=== PATIENT | female | born 1980 | race American Indian/Alaskan Native ===

== ENCOUNTER 2018-12-31 11:11 | Emergency (ER) | payer OTHER ==
--- NOTE | 2018-12-31 11:21 | Emergency Department Report ---
Blank Doc - Documentation Documentation: 38 y o female presents to Ed cc of right wrist pain s/p injury 2 weeks ago stat es door was slammed on her wrist and has had improper care by workers comp pain localized to wrist XR [facility] eval
[2018-12-31 11:22] VITALS: BP 121/83
--- NOTE | 2018-12-31 12:57 | Emergency Department Report ---
Upper Extremity - HPI Chief Complaint: Extremity Injury, Upper Stated Complaint: RT ARM INJURY Time Seen by Provider: 12/31/18 11:19 Upper Extremity: Left Forearm Occurred When: >5 Days Mechanism: Crush Severity: mild Symptoms: Yes Pain with Movement, No Deformity, No Limited Range of Movement, No Numbness, No Weakness, No Swelling, No Bruising/Ecchymosis, No Laceration or Abrasion Other History: Ms. Garzon is a 38-year-old female who presents half weeks after injury to her right forearm. 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 Prescribed ice pack. She has intermittent pain. She also has tingling of the proximal forearm. She just wants to make sure everything was ok with a second opinion. ED Review of Systems ROS: Stated complaint: RT ARM INJURY Other details as noted in HPI Constitutional: denies: fever, malaise Musculoskeletal: denies: joint swelling, arthralgia Neurological: denies: numbness, paresthesias ED Past Medical Hx - Past Medical History Previous Medical History?: Yes Hx Headaches / Migraines: Yes - Surgical History Past Surgical History?: Yes Additional Surgical History: tubal clamps - Social History Smoking Status: Current Every Day Smoker Substance Use Type: None - Medications Home Medications: Home Medications Medication Instructions Recorded Confirmed Last Taken Type Docusate Sodium [Colace] 100 mg PO BID #60 capsule 09/28/15 Unknown Rx HYDROcodone/APAP 5-325 [[place] 1 each PO Q6HR PRN #12 tablet 09/28/15 Unknown Rx 5/325] Promethazine [Phenergan TAB] 25 mg PO Q6HR PRN #16 tab 09/28/15 Unknown Rx Sulfamethoxazole/Trimethoprim 1 each PO BID #14 tablet 09/28/15 Unknown Rx [Bactrim DS TAB] Upper Extremity Exam - Exam General: Vital signs noted. No distress. Alert and acting appropriately. Head and Torso: No HEENT Abnormality Shoulder Exam: No Shoulder Tenderness Arm Exam: No Arm/Humerus Tenderness, No Arm Deformity Elbow: Yes Normal Range of Motion in Elbow, No Elbow Tenderness, No Elbow Deformity Forearm: No Forearm Tenderness, No Forearm Deformity, No Pain with Pronation, No Pain with Supination Wrist: Yes Wrist Deformity, No Wrist Tenderness, No Normal ROM in Wrist, No Snuffbox Tenderness, No Pain with Axial Thumb Compression Hand: No Hand Tenderness, No Hand Deformity, No Digit Tenderness ED Course Vital Signs 12/31/18 11:19 Temperature 98.2 F Pulse Rate 82 Respiratory 18 Rate Blood Pressure 121/83 O2 Sat by Pulse 99 Oximetry ED Medical Decision Making - Radiology Data Radiology results: report reviewed Right forearm and elbow radiographs 3 views interpreted by me no fracture no dislocation no acute process normal exam - Medical Decision Making Forearm contusion from a crush injury at work, given reassurance. Critical care attestation.: If time is entered above; I have spent that time in minutes in the direct care of this critically ill patient, excluding procedure time. ED Disposition Clinical Impression: Contusion of right forearm Disposition: - TO HOME OR SELFCARE Is pt being admited?: No Does the pt Need Aspirin: No Condition: Stable Instructions: Contusion in Adults (ED)
--- NOTE | 2018-12-31 12:57 | XRay Report ---
PROCEDURE: XR FOREARM 1V RT TECHNIQUE: AP radiograph of the right forearm was performed. HISTORY: pain COMPARISONS: None. FINDINGS: No fracture. No dislocation. Normal mineralization. No soft tissue swelling. IMPRESSION: No acute abnormality of the right forearm on this single frontal view. This document is electronically signed by Fabby Luis., December 31 2018 01:54:49 PM ET
--- NOTE | 2018-12-31 13:14 | XRay Report ---
PROCEDURE: XR ELBOW 3+V RT TECHNIQUE: AP, oblique and lateral radiographs of the right elbow were performed. HISTORY: pain COMPARISONS: None. FINDINGS: No fracture. No dislocation. Normal mineralization. No soft tissue swelling. No joint effusion. IMPRESSION: Normal right elbow. This document is electronically signed by Fabby Luis., December 31 2018 02:11:59 PM ET
== END 2018-12-31 13:23 | disposition home or self-care (01) ==
LOC: ED 11:11
DX: S50.11XA Contusion of right forearm, initial encounter (principal); F17.200 Nicotine dependence, unspecified, uncomplicated; G43.909 Migraine, unspecified, not intractable, without status migrainosus; Z98.51 Tubal ligation status; X58.XXXA Exposure to other specified factors, initial encounter; Y93.89 Activity, other specified; Y92.89 Other specified places as the place of occurrence of the external cause; Y99.8 Other external cause status

== ENCOUNTER 2019-07-01 03:54 | Emergency (ER) | payer OTHER ==
[2019-07-01] MEDS ORDERED: SODIUM CHLORIDE 0.9% 1000 ML 1,000 ML IV ONE (04:09)
[2019-07-01] MEDS ORDERED: ONDANSETRON 4 MG/2 ML INJ IV ONE (04:09)
[2019-07-01] MEDS ORDERED: MORPHINE 4 MG/1 ML INJ IV ONE (04:09)
[2019-07-01] MEDS ORDERED: KETOROLAC 30 MG/1 ML INJ IV ONE (04:09)
--- NOTE | 2019-07-01 04:13 | Emergency Department Report ---
ED Abdominal Pain HPI - General Chief Complaint: Abdominal Pain Stated Complaint: ABD PAIN Time Seen by Provider: 07/01/19 04:01 Source: patient, EMS Mode of arrival: Stretcher Limitations: No Limitations - History of Present Illness Initial Comments: Mrs. Garzon is a 38 yo female with hx of uterine fibroids who presents with severe epigastric central abdominal pain which began a few hours ago. Sharp severe 10/10 pain, "worse pain in my life." She took ibuprofen for heartburn earlier this evening. +nausea/vomiting. Normal BM yesterday morning. She ate typical thanksgiving food this eveing. Arrived via EMS drank 2 wine coolers today Hx of tubal ligation. Complaint: abdominal pain -: Gradual, hour(s) (several hours) Location: periumbilical, epigastric Severity scale (0 -10): 10 Quality: sharp Consistency: constant Improves With: nothing Worsens With: nothing Context: other (no hx of such pain) Associated Symptoms: nausea, vomiting - Related Data Previous Rx's Medication Instructions Recorded Last Taken Type Docusate Sodium [Colace] 100 mg PO BID #60 capsule 09/28/15 Unknown Rx HYDROcodone/APAP 5-325 [[place] 1 each PO Q6HR PRN #12 tablet 09/28/15 Unknown Rx 5/325] Promethazine [Phenergan TAB] 25 mg PO Q6HR PRN #16 tab 09/28/15 Unknown Rx Sulfamethoxazole/Trimethoprim 1 each PO BID #14 tablet 09/28/15 Unknown Rx [Bactrim DS TAB] Famotidine [Pepcid] 20 mg PO BID 30 Days #60 tablet 07/01/19 Unknown Rx HYDROcodone/APAP 5-325 [[place] 1 each PO Q6HR PRN #10 tablet 07/01/19 Unknown Rx 5/325] Promethazine [Phenergan] 25 mg PO Q6HR PRN #10 tab 07/01/19 Unknown Rx Allergies Allergy/AdvReac Type Severity Reaction Status Date / Time No Known Allergies Allergy Verified 12/31/18 11:13 ED Review of Systems ROS: Stated complaint: ABD PAIN Other details as noted in HPI Comment: All other systems reviewed and negative Constitutional: denies: fever, malaise Cardiovascular: denies: chest pain Gastrointestinal: abdominal pain, nausea, vomiting. denies: diarrhea, constipation Musculoskeletal: denies: back pain ED Past Medical Hx - Past Medical History Previous Medical History?: Yes Hx Headaches / Migraines: Yes Additional medical history: uterine fibroids - Surgical History Past Surgical History?: Yes Additional Surgical History: tubal clamps - Social History Smoking Status: Current Every Day Smoker Substance Use Type: Alcohol - Medications Home Medications: Home Medications Medication Instructions Recorded Confirmed Last Taken Type Docusate Sodium [Colace] 100 mg PO BID #60 capsule 09/28/15 Unknown Rx HYDROcodone/APAP 5-325 [[place] 1 each PO Q6HR PRN #12 tablet 09/28/15 Unknown Rx 5/325] Promethazine [Phenergan TAB] 25 mg PO Q6HR PRN #16 tab 09/28/15 Unknown Rx Sulfamethoxazole/Trimethoprim 1 each PO BID #14 tablet 09/28/15 Unknown Rx [Bactrim DS TAB] Famotidine [Pepcid] 20 mg PO BID 30 Days #60 tablet 07/01/19 Unknown Rx HYDROcodone/APAP 5-325 [[place] 1 each PO Q6HR PRN #10 tablet 07/01/19 Unknown Rx 5/325] Promethazine [Phenergan] 25 mg PO Q6HR PRN #10 tab 07/01/19 Unknown Rx ED Physical Exam - General Limitations: No Limitations General appearance: alert, other (tearful appears in pain) - Head Head exam: Present: atraumatic, normocephalic - Eye Eye exam: Present: normal appearance - ENT ENT exam: Present: mucous membranes moist - Neck Neck exam: Present: normal inspection, full ROM - Respiratory Respiratory exam: Present: normal lung sounds bilaterally. Absent: respiratory distress, wheezes, rales, rhonchi - Cardiovascular Cardiovascular Exam: Present: regular rate, normal rhythm, normal heart sounds. Absent: systolic murmur, diastolic murmur, rubs, gallop - GI/Abdominal GI/Abdominal exam: Present: soft, normal bowel sounds. Absent: distended, tenderness, guarding, rebound - Extremities Exam Extremities exam: Present: normal inspection - Back Exam Back exam: Present: normal inspection - Neurological Exam Neurological exam: Present: alert, oriented X3 - Psychiatric Psychiatric exam: Present: normal affect, normal mood - Skin Skin exam: Present: warm, dry, intact, normal color. Absent: rash ED Course Vital Signs 07/01/19 07/01/1919 04:04 04:10 05:00 Temperature 98.8 F 98.8 F Pulse Rate 79 79 53 L Respiratory 16 16 19 Rate Blood Pressure 144/105 118/73 Blood Pressure 144/105 [Left] O2 Sat by Pulse 99 99 100 Oximetry ED Medical Decision Making - Lab Data Result diagrams: 07/01/19 04:22 07/01/19 04:22 - Radiology Data Radiology results: report reviewed CT a/p: NAP - Medical Decision Making Mrs. Garzon presents with abdominal chest pain. Suggestive of GERD/gastritis/PUD rx: famotidine CBC chemistry lipase CT A/P all within normal limits I provided instructions. Recommended cessation of tobacco use. Critical care attestation.: If time is entered above; I have spent that time in minutes in the direct care of this critically ill patient, excluding procedure time. ED Disposition Clinical Impression: Abdominal pain Disposition: DC-01 TO HOME OR SELFCARE Is pt being admited?: No Does the pt Need Aspirin: No Condition: Stable Instructions: Abdominal Pain (ED) Prescriptions: HYDROcodone/APAP 5-325 [[place] 5/325] 1 each PO Q6HR PRN #10 tablet PRN Reason: Pain Famotidine [Pepcid] 20 mg PO BID 30 Days #60 tablet Promethazine [Phenergan] 25 mg PO Q6HR PRN #10 tab PRN Reason: Nausea Referrals: FERNANDO FREED MD [Staff Physician] - 3-5 Days [facility] [Outside] - 3-5 Days Forms: Work/School Release Form(ED)
[2019-07-01 04:35] LABS: Hematocrit 38.7 % (30.3-42.9); Mean Corpuscular HGB Conc 34 % (30-34); Mean Corpuscular Volume 96 fl (79-97); Platelet Count 212 K/mm3 (140-440); Red Blood Count 4.03 M/mm3 (3.65-5.03); Red Cell Distribution Width 13.5 % (13.2-15.2)
[2019-07-01 04:52] LABS: Alanine Aminotransferase 9 units/L (7-56); Albumin 4.3 g/dL (3.9-5); BUN/Creatinine Ratio 9; Blood Urea Nitrogen 6 mg/dL (7-17); Calcium 8.8 mg/dL (8.4-10.2); Hemolysis Index 3
[2019-07-01 04:59] LABS: Bilirubin,Direct < 0.2 mg/dL (0-0.2)
[2019-07-01 05:35] LABS: Basophils % (Manual) 0 % (0.0-1.8); Total Cells Counted 100
--- NOTE | 2019-07-01 05:35 | Cat Scan Report ---
CT ABDOMEN AND PELVIS WITHOUT CONTRAST INDICATION / CLINICAL INFORMATION: severe central abd pain. TECHNIQUE: Axial CT images were obtained through the abdomen and pelvis without IV contrast. All CT scans at [facility] location are performed using CT dose reduction for ALARA by means of automated exposure control. COMPARISON: None available. FINDINGS: LOWER CHEST: No significant abnormality. LIVER: No significant abnormality. GALLBLADDER: No significant abnormality. BILE DUCTS: No significant abnormality. PANCREAS: No significant abnormality. SPLEEN: No significant abnormality. ADRENALS: No significant abnormality. RIGHT KIDNEY and URETER: No significant abnormality. LEFT KIDNEY and URETER: No significant abnormality. STOMACH and SMALL BOWEL: No significant abnormality. COLON: No significant abnormality. APPENDIX: No significant abnormality. PERITONEUM: No free fluid. No free air. No fluid collection. LYMPH NODES: No significant adenopathy. AORTA and ARTERIES: No significant abnormality. IVC and VEINS: No significant abnormality. URINARY BLADDER: No significant abnormality. REPRODUCTIVE ORGANS: No significant abnormality. ADDITIONAL FINDINGS: None. SKELETAL SYSTEM: No significant abnormality. IMPRESSION: 1. No significant abnormality. Signer Name: Christian Joseph MD Signed: 07/01/2019 5:31 AM Workstation Name: [id number]
[2019-07-01 05:36] LABS: Anisocytosis Few
[2019-07-01 05:37] LABS: Platelet Estimate Appears Decreased
[2019-07-01] MEDS ORDERED: HYDROcodone/ACETAMINOPHEN 5-325 MG TAB PO ONE (05:53)
[2019-07-01] MEDS ORDERED: ONDANSETRON 4 MG ODT TAB PO ONE (05:53)
[2019-07-01] MEDS ORDERED: ALUM-MAG HYDROXIDE-SIMETHICONE 200-200-20MG/5ML ORAL LIQD 30 ML PO ONE (05:53)
[2019-07-01 06:30] VITALS: BP 125/88
== END 2019-07-01 06:20 | disposition home or self-care (01) ==
LOC: ED 03:54
DX: R10.13 Epigastric pain (principal); R11.2 Nausea with vomiting, unspecified; F17.200 Nicotine dependence, unspecified, uncomplicated
CPT/HCPCS: 36415; 74176; 80048; 80076; 83690; 84703; 85007; 85025; 96361; 96374; 96375; 99285; J1885; J2270; J2405; J7030; Q0162

== ENCOUNTER 2019-08-22 15:10 | Emergency (ER) | payer SELFPAY ==
[2019-08-22] MEDS ORDERED: METOCLOPRAMIDE 10 MG/2 ML INJ IV ONE (16:40)
[2019-08-22] MEDS ORDERED: SODIUM CHLORIDE 0.9% 1000 ML 1,000 ML IV ONE (16:40)
--- NOTE | 2019-08-22 16:41 | Event Note ---
ED Screening Note Date of service: 08/22/19 Time: 16:35 ED Screening Note: 38 y o female presents with nausea, vomitting and diahrea x 2 days with no ability to eat due to continous vomitting PMH: crohns daughter stating mom passed out while in ER waiting room just prior to triage This initial assessment/diagnostic orders/clinical plan/treatment(s) is/are subject to change based on patients health status, clinical progression and re- assessment by fellow clinical providers in the ED. Further treatment and workup at subsequent clinical providers discretion. Patient/guardian urged not to elope from the ED as their condition may be serious if not clinically assessed and managed. Initial orders include: labs, ivf, zofran ct? eval
[2019-08-22] MEDS ORDERED: diphenhydrAMINE 50 MG/ML VIAL IV ONE (17:11)
--- NOTE | 2019-08-22 17:26 | Emergency Department Report ---
ED N/V/D HPI - General Chief complaint: Nausea/Vomiting/Diarrhea Stated complaint: FLU SYM/N/V Time Seen by Provider: 08/22/19 17:11 Source: patient Mode of arrival: Ambulatory Limitations: No Limitations - History of Present Illness Initial comments: Physical pleasant 38-year-old female presents [place] chief complaint of nausea, vomiting, diarrhea or body aches, generalized malaise, fever and chills. Patient's past no history of Crohn's disease has not been on any medication for the past 6 months. She has a history of uterine fibroids and a past surgical history of a tubal ligation. Per nursing staff while the patient was in triage she had a syncopal episode. Patient reports she has been dizzy during this time. She denies any chest pain, shortness breath, hematemesis, melena, no she is here, or any other associated symptoms. - Related Data Previous Rx's Medication Instructions Recorded Last Taken Type Docusate Sodium [Colace] 100 mg PO BID #60 capsule 09/28/15 Unknown Rx HYDROcodone/APAP 5-325 [[place] 1 each PO Q6HR PRN #12 tablet 09/28/15 Unknown Rx 5/325] Promethazine [Phenergan TAB] 25 mg PO Q6HR PRN #16 tab 09/28/15 Unknown Rx Sulfamethoxazole/Trimethoprim 1 each PO BID #14 tablet 09/28/15 Unknown Rx [Bactrim DS TAB] Famotidine [Pepcid] 20 mg PO BID 30 Days #60 tablet 07/01/19 Unknown Rx HYDROcodone/APAP 5-325 [[place] 1 each PO Q6HR PRN #10 tablet 07/01/19 Unknown Rx 5/325] Promethazine [Phenergan] 25 mg PO Q6HR PRN #10 tab 07/01/19 Unknown Rx Ibuprofen [Motrin 800 MG tab] 800 mg PO Q8HR PRN #30 tablet 08/22/19 Unknown Rx Ondansetron [Zofran Odt] 4 mg PO Q8HR #30 tab.rapdis 08/22/19 Unknown Rx Allergies Allergy/AdvReac Type Severity Reaction Status Date / Time No Known Allergies Allergy Verified 12/31/18 11:13 ED Review of Systems ROS: Stated complaint: FLU SYM/N/V Other details as noted in HPI Comment: All other systems reviewed and negative Constitutional: see HPI, chills, fever Eyes: denies: eye pain, eye discharge, vision change ENT: as per HPI, congestion. denies: ear pain, throat pain Respiratory: denies: cough, shortness of breath, wheezing Cardiovascular: denies: chest pain, palpitations Endocrine: no symptoms reported Gastrointestinal: as per HPI, nausea, vomiting, diarrhea. denies: abdominal pain Genitourinary: denies: urgency, dysuria, discharge Musculoskeletal: denies: back pain, joint swelling, arthralgia Skin: denies: rash, lesions Neurological: denies: headache, weakness, paresthesias Psychiatric: denies: anxiety, depression Hematological/Lymphatic: denies: easy bleeding, easy bruising ED Past Medical Hx - Past Medical History Previous Medical History?: Yes Hx Headaches / Migraines: Yes Additional medical history: Uterine fibroids - Surgical History Past Surgical History?: Yes Additional Surgical History: Tubal ligation - Social History Smoking Status: Current Every Day Smoker Substance Use Type: None - Medications Home Medications: Home Medications Medication Instructions Recorded Confirmed Last Taken Type Docusate Sodium [Colace] 100 mg PO BID #60 capsule 09/28/15 Unknown Rx HYDROcodone/APAP 5-325 [[place] 1 each PO Q6HR PRN #12 tablet 09/28/15 Unknown Rx 5/325] Promethazine [Phenergan TAB] 25 mg PO Q6HR PRN #16 tab 09/28/15 Unknown Rx Sulfamethoxazole/Trimethoprim 1 each PO BID #14 tablet 09/28/15 Unknown Rx [Bactrim DS TAB] Famotidine [Pepcid] 20 mg PO BID 30 Days #60 tablet 07/01/19 Unknown Rx HYDROcodone/APAP 5-325 [[place] 1 each PO Q6HR PRN #10 tablet 07/01/19 Unknown Rx 5/325] Promethazine [Phenergan] 25 mg PO Q6HR PRN #10 tab 07/01/19 Unknown Rx Ibuprofen [Motrin 800 MG tab] 800 mg PO Q8HR PRN #30 tablet 08/22/19 Unknown Rx Ondansetron [Zofran Odt] 4 mg PO Q8HR #30 tab.rapdis 08/22/19 Unknown Rx ED Physical Exam - General Limitations: No Limitations General appearance: alert, in no apparent distress - Head Head exam: Present: atraumatic, normocephalic - Eye Eye exam: Present: normal appearance, PERRL, EOMI Pupils: Present: normal accommodation - ENT ENT exam: Present: normal exam, normal orophraynx, mucous membranes moist - Neck Neck exam: Present: normal inspection, full ROM. Absent: tenderness, meningismus - Respiratory Respiratory exam: Present: normal lung sounds bilaterally. Absent: respiratory distress, wheezes, rales, rhonchi, stridor, chest wall tenderness - Cardiovascular Cardiovascular Exam: Present: regular rate, normal rhythm, normal heart sounds. Absent: systolic murmur, diastolic murmur, rubs, gallop - GI/Abdominal GI/Abdominal exam: Present: soft, normal bowel sounds. Absent: distended, tenderness, guarding, rebound, rigid - Extremities Exam Extremities exam: Present: normal inspection, full ROM, normal capillary refill. Absent: tenderness, pedal edema, joint swelling - Back Exam Back exam: Present: normal inspection, full ROM. Absent: tenderness, CVA tenderness (R), CVA tenderness (L) - Neurological Exam Neurological exam: Present: alert, oriented X3, normal gait - Psychiatric Psychiatric exam: Present: normal affect, normal mood - Skin Skin exam: Present: warm, dry, intact, normal color. Absent: rash ED Course Vital Signs 08/22/19 08/22/19 15:13 16:28 Temperature 99.2 F 99.3 F Pulse Rate 82 77 Respiratory 16 18 Rate Blood Pressure 136/72 Blood Pressure 106/68 [Right] O2 Sat by Pulse 100 96 Oximetry - Reevaluation(s) Reevaluation #1: 08/22/19 18:51 Patient is feeling much better. Smiling and repeat abdominal exam is benign. She is tolerating by mouth fluids. ED Medical Decision Making - Lab Data Result diagrams: 08/22/19 17:32 08/22/19 17:32 Labs 08/22/19 08/22/19 08/22/19 16:43 17:32 17:32 WBC 5.4 RBC 4.30 Hgb 14.0 Hct 41.5 MCV 96 MCH 33 H MCHC 34 RDW 13.4 Plt Count 190 Lymph % (Auto) 5.5 L [place] % (Auto) 7.9 H Eos % (Auto) 2.5 Baso % (Auto) 0.2 Lymph # 0.3 L [place] # 0.4 Eos # 0.1 Baso # 0.0 Seg Neutrophils % 83.9 H Seg Neutrophils # 4.5 Sodium Potassium Chloride Carbon Dioxide Anion Gap BUN Creatinine Estimated GFR BUN/Creatinine Ratio Glucose POC Glucose 92 Calcium Total Bilirubin AST ALT Alkaline Phosphatase Total Protein Albumin Albumin/Globulin Ratio Lipase 18 HCG, Qual Influenza A (Rapid) Influenza B (Rapid) 08/22/19 08/22/19 08/22/19 17:32 17:32 17:35 WBC RBC Hgb Hct MCV MCH MCHC RDW Plt Count Lymph % (Auto) [place] % (Auto) Eos % (Auto) Baso % (Auto) Lymph # [place] # Eos # Baso # Seg Neutrophils % Seg Neutrophils # Sodium 138 Potassium 3.5 L Chloride 100.8 Carbon Dioxide 21 L Anion Gap 20 BUN 5 L Creatinine 0.7 Estimated GFR > 60 BUN/Creatinine Ratio 7 Glucose 94 POC Glucose Calcium 9.9 Total Bilirubin 0.30 AST 15 ALT 10 Alkaline Phosphatase 60 Total Protein 8.4 H Albumin 5.0 Albumin/Globulin Ratio 1.5 Lipase HCG, Qual Negative Influenza A (Rapid) Negative Influenza B (Rapid) Negative - Medical Decision Making Patient presented to [facility] department with nausea vomiting diarrhea generalized weakness. She had a reported syncopal episode in the waiting room. She was given IV fluids and felt much better. She is given anti-medics and is now tolerate by mouth fluids. Her abdominal exam was benign. Neuro exam was nonfocal. Patient was feeling much better and wanted to go home. I will give her prescription for Zofran and ibuprofen for her pain and fever. Flu swab was negative. She was instructed to follow-up with her primary care doctor the next 2-3 days or return to the emergency department with any changing or worsening symptoms. She verbalizes understanding of the diagnosis, treatment plan and follow-up instructions in all of her questions were answered. She is perk negative and a low risk by well's criteria for PE. Critical care attestation.: If time is entered above; I have spent that time in minutes in the direct care of this critically ill patient, excluding procedure time. ED Disposition Clinical Impression: Nausea vomiting and diarrhea, Dehydration Disposition: DC-01 TO HOME OR SELFCARE Is pt being admited?: No Condition: Stable Instructions: Acute Nausea and Vomiting (ED) Prescriptions: Ibuprofen [Motrin 800 MG tab] 800 mg PO Q8HR PRN #30 tablet PRN Reason: Pain , Severe (7-10) Ondansetron [Zofran Odt] 4 mg PO Q8HR #30 tab.rapdis Referrals: PRIMARY CARE, [Primary Care Provider] - 3-5 Days [facility] [Provider Group] - 3-5 Days Forms: Work/School Release Form(ED) Time of Disposition: 18:55
[2019-08-22 17:55] LABS: Hematocrit 41.5 % (30.3-42.9); Lymphocytes % (Auto) 5.5 % (13.4-35.0); Mean Corpuscular HGB Conc 34 % (30-34); Mean Corpuscular Volume 96 fl (79-97); Monocytes % (Auto) 7.9 % (0.0-7.3); Platelet Count 190 K/mm3 (140-440); Red Cell Distribution Width 13.4 % (13.2-15.2)
[2019-08-22 17:56] LABS: Basophils % (Auto) 0.2 % (0.0-1.8); Eosinophils # (Auto) 0.1 K/mm3 (0.0-0.4); Eosinophils % (Auto) 2.5 % (0.0-4.3); Lymphocytes # (Auto) 0.3 K/mm3 (1.2-5.4); Monocytes # (Auto) 0.4 K/mm3 (0.0-0.8)
[2019-08-22 18:12] LABS: Alanine Aminotransferase 10 units/L (7-56); BUN/Creatinine Ratio 7; Blood Urea Nitrogen 5 mg/dL (7-17); Calcium 9.9 mg/dL (8.4-10.2); Hemolysis Index 40
[2019-08-22 19:52] VITALS: BP 112/68
== END 2019-08-22 19:52 | disposition home or self-care (01) ==
LOC: ED 15:10
DX: E86.0 Dehydration (principal); Z98.51 Tubal ligation status; Z79.899 Other long term (current) drug therapy
CPT/HCPCS: 36415; 80053; 82962; 83690; 84703; 85025; 87400; 96361; 96374; 96375; 99283; J1200; J2765; J7030